=== PATIENT | female | born 1970 | race Two or more races ===

== ENCOUNTER 2017-10-09 05:10 | Emergency (ER) | payer MEDICAID ==
[~2017-10-09] VITALS: Ht 162.6 cm; Wt 102.1 kg
[~2017-10-09 05:10] MED LIST: ACID REDUCER10 MG PO; AMOXICILLIN 50500 MG PO; AMOXICILLIN/CLA1 TA6 PO; ASPIRIN 81MG TA81 MG PO; AURALGAN O10 ML/BOTT OT; BACTRIM DS 8001 TA1 PO; BACTRIM DS 8001 TAB PO; CIPRO 250MG TA250 MG PO; CIPRO 500MG TA500 MG PO; IBUPROFEN 600M600 MG PO; KEFLEX 500MG.500 MG PO; LORTAB 500 MG-71 TAB PO; MACRODANTIN100 MG PO; MIRALAX17 GM/PACK PO; MOBIC7.5 MG PO; MOTRIN 400MG.400 MG PO; NOMEDS *; NORCO 325 MG-51 TAB PO; OMEPRAZOLE20 MG PO; PEPCID 20MG TAB20 MG PO; PHENERGAN 25MG.25 M1 PO; PREDNISONE 20MG20 MG PO; PRILOSEC20 M1 PO; TORADOL10 MG PO; ULTRAM50 MG PO; ZANTAC 7575 MG PO; ZOFRAN ODT4 MG PO
[2017-10-09] MEDS ORDERED: LEVOTHYROXINE0.05 MG NG (05:22)
[2017-10-09] MEDS ORDERED: ASPIRIN 325MG325 MG PO (05:22)
--- OUTSIDE RECORDS SUMMARY | 2017-10-09 05:25 | External Medical Summary Rpt | CCD ---
Author Author , MARGUERITE EVERETT Address Unknown Phone Care Team Providers Care Reconcilement Clerk Name Role Phone [facility] Unavailable Unavailable [facility] Un[facility] Un[facility], [facility] Unavailable Unavailable HOSPITAL P, [facility] P [facility], Unavailable Unavailable [facility] CEZ[facility] LEYVA, Unavailable Unavailable CEZAR LEYVA [facility] Unavailable Unavailable [place], [facility] Unavailable Unavailable [facility], Unavailable Unavailable [facility] Un[facility], Unavailable Unavailable PLL, [facility], [facility] Unavailable [facility]available EMERGENCY PHYS, [facility] Purpose Continuity of Care Document - 07-05-2014 through 2016 Problems Code Diagnosis DOS Provider Status I119 HYPERTENSIV 07-06-2017 [facility] DISEASE [facility] WITHOUT HEART FAILURE K449 DIAPHRAGMAT 07-06-2017 [place] [facility] W/O IMAGING ASS OBSTRUCTION OR GANGRENE R0602 SHORTNESS 07-06-2017 [facility] BREATH [facility] INC R079 CHEST PAIN 07-06-2017 [facility] INC R109 UNSPECIFIED 07-06-2017 [facility]OM[facility]AL [facility] PAIN INC R1310 DYSPHAGIA 07-06-2017 [facility] Q13435 MIGRAINE 06-22-2017 [facility] UNS NOT PHYSICIANS INTRACT W/O GROUP STATUS MIGRAINOSUS H449 UNSPECIFIED 06-22-2017 [facility] DISORDER [facility] OF GLOBE INC R002 PALPITATION 06-22-2017 [facility] S PHYSICIANS GROUP 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 PERSONAL HX 06-22-2017 [facility] TIA & PHYSICIANS CEREB GROUP INFARCT NO RESID DEFICIT E039 HYPOTHYROID 06-08-2017 [facility] ISM PHYSICIANS UNSPECIFIED GROUP 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 [facility] ISCHEMIC INC ATTACK UNSPECIFIED G8929 OTHER 10-17-2016 [facility]IC [facility], PAIN PLLC R1031 RIGHT LOWER 10-14-2016 [facility] QUADRANT PHYSICIANS PAIN GROUP R319 HEMATURIA 10-14-2016 [place] [facility] E663 OVERWEIGHT 09-28-2016 [facility] K529 NONINFECTIV 09-28-2016 [facility] E PHYSICIANS GASTROENTER GROUP ITIS & COLITIS UNS I10 ESSENTIAL 09-25-2016 [facility] HYPERTENSIO INC N K4020 BILAT 09-25-2016 [facility] INGUINAL [facility], HERNIA W/O PLLC OBST/GANGRE N NOT RECUR K6289 OTHER 09-25-2016 [facility] SPECIFIED PHYSICIANS, DISEASES OF [facility] ANUS AND RECTUM R1032 LEFT LOWER 09-25-2016 [facility] PAIN INC L299 PRURITUS 09-16-2016 [facility] UNSPECIFIED PHYSICIANS GROUP L309 DERMATITIS 09-16-2016 [facility] UNSPECIFIED PHYSICIANS GROUP R030 ELEVATED 09-16-2016 [facility] BLOOD-PRESS PHYSICIANS URE READING GROUP WITHOUT DX HTN Q84QLEE BIT/STUNG 09-16-2016 [facility] NONVENOM PHYSICIANS INSECT OTH GROUP ARTHROPOD INIT ENC N390 URINARY 07-19-2016 [facility] INFECTION INC SITE NOT SPECIFIED B9620 UNS E COLI 07-18-2016 [facility] CAUSE DZ INC CLASS ELSEWHERE J029 ACUTE 07-15-2016 [facility] PHARYNGITIS PHYSICIANS GROUP UNSPECIFIED Z1231 ENCOUNTER 07-15-2016 [facility] SCREENING PHYSICIANS MAMMO MALIG GROUP NEOPLASM BREAST K429 UMBILICAL 07-10-2016 [place] [facility] WITHOUT IMAGING ASS OBSTRUCTION OR GANGRENE K5900 CONSTIPATIO 07-10-2016 [place] N [facility] UNSPECIFIED IMAGING ASS D649 ANEMIA 07-09-2016 [facility] UNSPECIFIED [facility]ICIANS, PLLC Z720 TOBACCO USE 07-09-2016 [facility] K3580 UNSPECIFIED 10-28-2015 [facility] APPENDICITI S K36 OTHER 10-28-2015 [facility] APPENDICITI PHYSICIANS S GROUP N9489 OTH COND 10-28-2015 [facility] ASSOC W/FE PHYSICIANS GEN ORGN & GROUP MENSTRUAL CYCL R102 PELVIC AND 10-28-2015 [facility] PER[facility] ANEST[facility] OF PAIN THE BLUE N831 CORPUS 10-24-2015 [facility] P T00656 ENCOUNTER 10-24-2015 [facility] FOR OTHER [facility] P AL EXAMINATION H6501 ACUTE 10-19-2015 [facility] SEROUS [facility], OTITIS PLLC MEDIA RIGHT EAR H6690 OTITIS 10-10-2015 [facility] MEDIA PHYSICIANS UNSPECIFIED GROUP UNSPECIFIED EAR Z1239 ENCOUNTER 10-10-2015 [facility] OTHER PHYSICIANS SCREENING GROUP MALIG NEOPLASM BREAST K644 RESIDUAL 10-07-2015 [facility] HEMORRHOIDA PHYSICIANS L SKIN TAGS GROUP A498 OTHER 09-23-2015 [facility] BACTERIAL PHYSICIANS INFECTIONS GROUP OF UNSPECIFIED SITE K625 HEMORRHAGE 09-23-2015 [facility] OF ANUS AND PHYSICIANS RECTUM GROUP N8320 UNSPECIFIED 09-23-2015 [facility] OVARIAN PHYSICIANS CYSTS GROUP N3000 ACUTE 09-19-2015 [facility] CYSTITIS [facility], WITHOUT PLLC HEMATURIA R1011 RIGHT UPPER 09-19-2015 [facility] QU[facility]ANT [facility], PAIN PLLC Z0100 ENCOUNTER 09-19-2015 [facility] EXAM EYES & GRE VISION W/O ABNORMAL FIND R110 NAUSEA 09-17-2015 [facility] R6881 EARLY 09-17-2015 [facility] SATIETY PHYSICIANS GROUP 92454 ACUTE 08-03-2015 [facility] GASTRITIS LEWES WITHOUT CAMPUS MENTION OF HEMORRHAGE 2859 UNSPECIFIED 07-29-[address] [facility] ANEMIA [facility] 7881 DYSURIA 07-29-2015 [facility] 5990 URINARY 07-15-[address] [facility] TRACT HEALTH INFECTION PARTNERS SITE NOT [facility] SPECIFIED V1251 PERSONAL 07-15-[address] [facility] HISTORY, HEALTH VENOUS PARTNERS THROMBOSIS [facility] AND EMBOLISM 95373 OTHER 07-14-[address] [facility] CONSTIPATIO HEALTH N [facility] 01319 ABDOMINAL 07-14-2015 [facility] PAIN OTHER HEALTH SPECIFIED PARTNERS SITE [facility] 4019 UNSPECIFIED 07-04-2015 [facility] HYPERTENSIO INC N 4139 OTHER AND 07-01-2015 [facility] ANGINA INC PECTORIS 29848 CHEST PAIN 06-18-[address] [facility] UNSPECIFIED HEALTH [facility] 58363 PAIN IN 06-17-[address] [facility] JOINT, HEALTH SHOULDER [facility] 7820 DISTURBANCE 06-17-[address] [facility] OF SKIN HEALTH SENSATION [facility] 7244 THORACIC/MATT 05-04-2015 [facility] NEURITIS/RA PARTNERS DICULITIS [facility] UNSPEC 36216 UNSPECIFIED 10-18-2014 [facility] ESOPHAGITIS GROUP 20893 REFLUX 10-11-2014 [facility] 50377 OTHER 10-11-2014 [facility] ESOPHAG[facility] 7503 CONGEN 10-11-2014 [facility]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 FIST GROUP ESOPH ATRESIA&JENNIFER NOSIS 57847 DYSPHAGIA 10-11-2014 [facility] UNSPECIFIED PHYSICIANS GROUP 4510 PHLEBITIS&T 10-06-2014 [facility] HROMBOPHLEB [facility] P VESSELS LOWER EXTREM V148 PERSONAL 10-06-2014 [facility] P SPEC MEDICINAL AGTS V1582 PERS HX 10-06-2014 [facility] TOBACCO USE [facility] P HAZARDS HEALTH 4536 VENOUS EMBO 10-04-2014 [facility] VES LOWR EXTREM 7295 PAIN IN 10-04-2014 [facility] [facility] OF [facility]ING [facility] [place] 98832 SWELLING OF 10-04-2014 [facility] 42566 ESOPHAGEAL 09-27-2014 [facility] REFLUX PHYSICIANS GROUP 7871 HEARTBURN 09-27-2014 [facility] 4739 UNSPECIFIED 09-17-2014 [facility] SINUSITIS PHYSICIANS GROUP 5533 DIAPHRAGMAT 08-21-2014 [facility] CESAR W/O HEALTH MENTION PARTNERS OBSTRUCTION [facility] /GANGREN 4660 ACUTE 08-11-2014 [facility] BRONCHITIS [facility] 5110 PLEURISY 08-09-2014 [facility] WITHOUT [facility] MENTION [facility] EFFUS/[place] [address] ABDOMINAL 07-05-2014 [facility] RIGHT N EMERGENCY UPPER PHYS QUADRANT D64.9 [facility], UNSPECIFIED I82.890 ACUTE EMBOLISM AND THROMBOSIS OF OTHER SPECIFIED VEINS J02.9 ACUTE PHARYNGITIS , UNSPECIFIED K40.20 BI INGUINAL HERNIA, W/O OBST OR GANGRENE, NOT SPCF RECUR K62.5 HEMORRHAGE OF ANUS AND RECTUM N39.0 URINARY TRACT INFECTION, SITE NOT SPECIFIED R10.31 RIGHT LOWER QUADRANT PAIN R10.9 UNSPECIFIED ABDOMINAL PAIN Medications Na ND Rx Da Fi Fi Am Da Di Ph RX Ph St me C No te ll ll ou ys ag ar # ys at rm s nt no ma ic us Or Da si cy ia de te s n re d IB 68 12 01 12 4 00 WA Ac UP 64 -1 -1 .0 00 L- ti RO 50 0- 3- 00 07 MA ve FE 53 20 20 45 RT N 05 16 17 76 60 9 89 PH 0 AR MG MA CY TA BL #5 ET 91 Results Labs Lab Lab Date Result Refere Interp Status Commen Order Detail nces retati t Range on Serum or plasma 25-hydroxyvitamin D neville (10-04-2017 14:00) Serum 11-27-2 = 25.0 30.0-10 complet or 017 ng/mL 0.0 ed plasma 14:00 25-hydr oxyvita min D [place] Comment: Vitamin D deficiency has been defined by the [place] of Comment: Medicine and an Endocrine Society practice guideline as a Comment: level of serum 25-OH vitamin D less than 20 ng/mL (1,2). Comment: The Endocrine Society went on to further define vitamin D Comment: insufficiency as a level between 21 and 29 ng/mL (2). Comment: 1. IOM ([place] of Medicine). 2010. Dietary reference Comment: intakes for calcium and D. Venegas [place]: The Comment: [employer]. Comment: 2. Issac MF, Sonia NC, Ann GRAY, et al. Comment: Evaluation, treatment, and prevention of vitamin D Comment: deficiency: an Endocrine Society clinical practice Comment: guideline. JCEM. 2010; 96(7):1911-30. Comment: Performed at: [facility] Comment: [id number], [place], [place] [id number] Comment: Supervisor [employer]: Porter Ware PhD, Phone: [phone] Serum or plasma thyroid stimulating horm (10-04-2017 14:00) Serum --2 = 4.72 0.358-3 complet or 017 uIU/ml .740 ed plasma 14:00 thyroid stimula ting horm Serum or plasma free thyroxine (T4) ne[place] (10-04-2017 14:00) Serum 11--2 = 0.87 0.76-1. complet or 017 ng/dL 46 ed plasma 14:00 free thyroxi ne (T4) [place] Comprehensive metabolic panel (10-04-2017 14:00) Serum 11--2 = 0.2 0.2-1.0 complet or 017 mg/dL ed plasma 14:00 total bilirub in measure m Serum 10-04-2 = 99 46-116 complet or 017 U/L ed plasma 14:00 alkalin e phospha tase marty Protein 2 = 7.3 6.4-8.2 complet total 017 gm/dL ed ser/denise 14:00 s ALT 2 = 20 12-78 complet (SGPT) 017 U/L ed ser/denise 14:00 s Serum 2 = 20 15-37 complet or 017 U/L ed plasma 14:00 asparta te aminotr ansfera Serum 2 = 142 136-145 complet sodium 017 mmoL/L ed measure 14:00 ment Serum 2 = 4.0 3.5-5.1 complet potassi 017 mmoL/L ed um 14:00 measure ment Serum 2 = 74 74-106 complet or 017 mg/dL ed plasma 14:00 glucose measure ment (mas Serum 2 = 3.5 1.3-3.2 complet globuli 017 gm/dL ed n 14:00 measure ment (mass/v olume) Estimat = 53 59- complet ed 017 ML/MIN ed glomeru 14:00 lar filtrat ion rate (GF Comment: REFERENCE RANGE: >60 ML/MIN/1.73 SQUARE METERS Comment: If this patient is -Cameroonian, then multiply the Comment: result by 1.210. Serum 2 = 1.1 0.55-1. complet or 017 mg/dL 02 ed plasma 14:00 creatin ine measure ment ( Carbon 2 = 27 21.0-32 complet dioxide 017 mmoL/L .0 ed 14:00 measure ment Serum 2 = 107 98-107 complet or 017 mmoL/L ed plasma 14:00 chlorid e measure ment (mo Serum 10-04-2 = 8.4 8.5-10. complet or 017 mg/dL 1 ed plasma 14:00 calcium measure ment (mas Serum 10-04-2 = 16 7-18 complet or 017 mg/dL ed plasma 14:00 urea nitroge n measure men Serum 10-04-2 = 3.8 3.4-5.0 complet or 017 gm/dL ed plasma 14:00 albumin measure ment (mas Serum 10-04-2 = 1.1 1.1-1.8 complet or 017 ed plasma 14:00 albumin /globul in mass ra Hemoglobin A1c measurement (10-04-2017 14:00) Hemoglo 11-27-2 5.5 % 0.0-7.0 complet bin A1c 017 ed 14:00 Comment: < 6% NON-DIABETIC LEVEL Comment: < 7% CONTROLLED DIABETIC LEVEL Comment: > 8% POORLY CONTROLLED DIABETIC LEVEL CBC w auto diff (10-04-2017 14:00) Blood = 5.4 4.8-10. complet leukocy 017 K/MM3 8 ed elizabeth 14:00 count (number /volume ) Automat = 16.6 11.5-17 complet ed 017 % .5 ed erythro 14:00 cyte distrib ution width Red = 4.06 4.2-5.4 complet blood 017 M/mm3 ed cell 14:00 count Blood = 214 142-424 complet platele 017 K/mm3 ed t count 14:00 Automat = 9.5 7.4-10. complet ed 017 fl 4 ed blood 14:00 platele t mean volume marty Terrell % = 6.3 % 1.7-9.3 complet 017 ed 14:00 Absolut = 0.3 0.1-1.0 complet e 017 K/mm3 ed monocyt 14:00 e count Automat = 80.1 82.2-97 complet ed 017 fl .8 ed erythro 14:00 cyte mean corpusc ular v Automat = 29.1 31.8-35 complet ed 017 g/dl .4 ed erythro 14:00 cyte mean corpusc ular h Mean = 23.3 27-31.2 complet corpusc 017 pg ed ular 14:00 hemoglo bin (MCH) determ Lymphoc = 32.0 10-50.0 complet yte 017 % ed count, 14:00 blood, automat ed Absolut = 1.7 0.7-4.5 complet e 017 K/mm3 ed lymphoc 14:00 yte count Blood = 9.6 12.2-16 complet hemoglo 017 g/dL .2 ed bin 14:00 measure ment (mass/v olum Blood = 32.5 37.0-47 complet hematoc 017 % .0 ed rit 14:00 (volume fractio n) Granulo = 58.8 37.0-80 complet cyte 017 % .0 ed percent 14:00 age Blood = 3.2 1.8-7.8 complet granulo 017 K/mm3 ed cytes 14:00 automat ed count (numb Automat = 2.4 % 0.1-12. complet ed 017 0 ed blood 14:00 eosinop hils/10 0 leukocy t Automat = 0.0 0-0.2 complet ed 017 K/MM3 ed blood 14:00 basophi l count (count/ vo Automat = 0.1 0.0-0.4 complet ed 017 K/mm3 ed blood 14:00 eosinop hil count Baso % = 0.5 % 0.1-2.0 complet 017 ed 14:00 Hemoglobin A1c in Blood (10-04-2017 14:00) Hemoglo 5.5 % 0.0% Normal complet bin A1c 017 - ed in 14:00 7.0% Blood Encounters Encounter Start End Date Code Location Performer Type Date [facility] - 7 7 [facility] - 7 7 [facility] - 7 7 [facility] - 6 6 [facility] - 6 6 [facility] - 6 6 [facility] - 6 6 [facility] - 6 6 [facility] - 6 6 [facility] - 6 [facility] - 5 5 [facility] 5 5 [facility] - 5 5 [facility] 5 [facility] 5 5 [facility] - 5 5 [facility] 5 5 [facility] - 5 5 [facility] - 5 5 [facility] 4 4 [facility] - 4 4 [facility] 4 4 [facility] - 4 4 [facility] 4 [facility] - 4 4 [facility] - 4 4 [facility]
--- OUTSIDE RECORDS SUMMARY | 2017-10-09 05:25 | External Medical Summary Rpt | CCD ---
Author Author , MARGUERITE EVERETT Address Unknown Phone Care Team Providers Care Hardware Design Engineer Name Role Phone [facility] OF Unavailable Unavailable [facility] [place] Un[facility] Un[facility] INC, [facility] Unavailable Unavailable HOSPITAL P, [facility] HOSPITAL P [facility], Unavailable Unavailable [facility] Unavailable Unavailable [facility], [facility] CEZAR LEYVA, Unavailable Unavailable CEZAR LEYVA [facility] Unavailable Unavailable [place] Unavailable Unavailable [facility], Unavailable Unavailable [facility] Unavailable [facility]available [facility], Unavailable Unavailable PLL, [facility], [facility] Unavailable Unavailable EMERGENCY PHYS, [facility] Purpose Continuity of Care Document - 07-05-2014 through 2016 Problems Code Diagnosis DOS Provider Status I119 HYPERTENSIV 07-06-2017 [facility] DISEASE INC WITHOUT HEART FAILURE K449 DIAPHRAGMAT 07-06-2017 [place] [facility]IA [facility]ICAL W/O IMAGING ASS OBSTRUCTION OR GANGRENE R0602 SHORTNESS 07-06-2017 [facility] OF BREATH [facility] INC R079 CHEST PAIN 07-06-2017 [facility] UNSPECIFIED [facility] INC R109 UNSPECIFIED 07-06-2017 [facility] ABDOMINAL [facility] PAIN INC R1310 DYSPHAGIA 07-06-2017 [place] UNSPECIFIED [facility]ICAL IMAGING ASS [id number] MIGRAINE 06-22-2017 [facility] UNS NOT PHYSICIANS INTRACT W/O GROUP STATUS MIGRAINOSUS H449 UNSPECIFIED 06-22-2017 [facility] DISORDER [facility] OF GLOBE INC R002 PALPITATION 06-22-2017 [facility] S PHYSICIANS GROUP [id number] PERSONAL HX 06-22-2017 [facility] TIA & PHYSICIANS CEREB GROUP INFARCT NO RESID DEFICIT E039 HYPOTHYROID 06-08-2017 [facility] ISM PHYSICIANS UNSPECIFIED GROUP 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 [facility] ISCHEMIC INC ATTACK UNSPECIFIED G8929 OTHER 10-17-2016 [facility] CHRONIC PHYSICIANS, PAIN PLLC R1031 RIGHT LOWER 10-14-2016 [facility] QUADRANT PHYSICIANS PAIN GROUP R319 HEMATURIA 10-14-2016 [place] UNSPECIFIED [facility]ICAL IMAGING ASS E663 OVERWEIGHT 09-28-2016 [facility] PHYSIC[facility]ANS GROUP K529 NONINFECTIV 09-28-2016 [facility] E PHYSICIANS GASTROENTER GROUP ITIS & COLITIS UNS I10 ESSENTIAL 09-25-2016 [facility] HYPERTENSIO INC N K4020 BILAT 09-25-2016 [facility] INGUINAL PHYSICIANS, HERNIA W/O PLLC OBST/GANGRE N NOT RECUR K6289 OTHER 09-25-2016 [facility] SPECIFIED PHYSICIANS, DISEASES OF [facility] ANUS AND RECTUM R1032 LEFT LOWER 09-25-2016 [place] [facility] PAIN INC L299 PRURITUS 09-16-2016 [facility] UNSPECIFIED PHYSICIANS GROUP L309 DERMATITIS 09-16-2016 [facility] UNSPECIFIED PHYSICIANS GROUP R030 ELEVATED 09-16-2016 [facility] BLOOD-PRESS PHYSICIANS URE READING GROUP WITHOUT DX HTN N53MRKD BIT/STUNG 09-16-2016 [facility] NONVENOM PHYSICIANS INSECT OTH GROUP ARTHROPOD INIT ENC N390 URINARY 07-19-2016 [place] [facility] INFECTION INC SITE NOT SPECIFIED B9620 UNS E COLI 07-18-2016 [place] [facility] CAUSE DZ INC CLASS ELSEWHERE J029 ACUTE 07-15-2016 [facility] PHARYNGITIS PHYSICIANS GROUP UNSPECIFIED Z1231 ENCOUNTER 07-15-2016 [facility] SCREENING PHYSICIANS MAMMO MALIG GROUP NEOPLASM BREAST K429 UMBILICAL 07-10-2016 [place] [facility]IA MEDICAL WITHOUT IMAGING ASS OBSTRUCTION OR GANGRENE K5900 CONSTIPATIO 07-10-2016 [place] N MEDICAL UNSPECIFIED IMAGING ASS D649 ANEMIA 07-09-2016 [facility] UNSPECIFIED PHYSICIANS, PLLC Z720 TOBACCO USE 07-09-2016 [facility] INC K3580 UNSPECIFIED 10-28-2015 [facility] APPENDICITI S K36 OTHER 10-28-2015 [facility] APPENDICITI PHYSICIANS S GROUP N9489 OTH COND 10-28-2015 [facility] ASSOC W/FE PHYSICIANS GEN ORGN & GROUP MENSTRUAL CYCL R102 PELVIC AND 10-28-2015 [facility] PERINEAL ANESTH OF PAIN THE BLUE N831 CORPUS 10-24-2015 [facility] P [id number] ENCOUNTER 10-24-2015 [facility] FOR OTHER [facility] P AL EXAMINATION H6501 ACUTE 10-19-2015 [facility] SEROUS PHYSICIANS, OTITIS PLLC MEDIA RIGHT EAR H6690 OTITIS 10-10-2015 [facility] MEDIA PHYSICIANS UNSPECIFIED GROUP UNSPECIFIED EAR Z1239 ENCOUNTER 10-10-2015 [facility] OTHER PHYSICIANS SCREENING GROUP MALIG NEOPLASM BREAST K644 RESIDUAL 10-07-2015 [facility] HEMORRHOIDA PHYSICIANS L SKIN TAGS GROUP A498 OTHER 09-23-2015 [facility] BACTERIAL PHYSICIANS INFECTIONS GROUP OF UNSPECIFIED SITE K625 HEMORRHAGE 09-23-2015 [facility] OF ANUS AND PHYSICIANS RECTUM GROUP N8320 UNSPECIFIED 09-23-2015 [facility] OVARIAN PHYSICIANS CYSTS GROUP N3000 ACUTE 09-19-2015 [facility] CYSTITIS PHYSICIANS, WITHOUT PLLC HEMATURIA R1011 RIGHT UPPER 09-19-2015 [facility] QUADRANT PHYSICIANS, PAIN PLLC Z0100 ENCOUNTER 09-19-2015 [facility] EXAM EYES & GRE VISION W/O ABNORMAL FIND R110 NAUSEA 09-17-2015 [facility] PHYSICIANS GROUP R6881 EARLY 09-17-2015 [facility] SATIETY PHYSICIANS GROUP 19468 ACUTE 08-03-2015 [facility] GASTRITIS [place] WITHOUT CAMPUS MENTION OF HEMORRHAGE 2859 UNSPECIFIED 07-29-2015 [facility] ANEMIA [facility] PART[facility]ERS [facility] 7881 DYSURIA 07-29-2015 [facility] 5990 URINARY 07-15-2015 [facility] TRACT HEALTH INFECTION PARTNERS SITE NOT [facility] SPECIFIED V1251 PERSONAL 07-15-2015 [facility] HISTORY, HEALTH VENOUS PARTNERS THROMBOSIS [facility] AND EMBOLISM 01618 OTHER 07-14-2015 [facility] CONSTIPATIO HEALTH N PARTNERS [facility] 64706 ABDOMINAL 07-14-2015 [facility] PAIN OTHER HEALTH SPECIFIED PARTNERS SITE [facility] 4019 UNSPECIFIED 07-04-2015 [facility] ESSENTIAL [facility] HYPERTENSIO INC N 4139 OTHER AND 07-01-2015 [facility] UNSPECIFIED [facility] ANGINA INC [place] 96633 CHEST PAIN 06-18-2015 [facility] UNSPECIFIED HEALTH [facility] 43389 PAIN IN 06-17-2015 [facility] JOINT, HEALTH SHOULDER [facility] 7820 DISTURBANCE 06-17-2015 [facility] OF SKIN HEALTH SENSATION [facility] 7244 THORACIC/MATT 05-04-2015 [facility] NEURITIS/RA PARTNERS DICULITIS [facility] UNSPEC 13919 UNSPECIFIED 10-18-2014 [facility] PHYSICIANS ESOPHAGITIS GROUP 11815 REFLUX 10-11-2014 [facility] 17341 OTHER 10-11-2014 [facility] 7503 CONGEN 10-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 P VESSELS LOWER EXTREM V148 PERSONAL 10-06-2014 [facility] HISTORY [facility] P SPEC MEDICINAL AGTS V1582 PERS HX 10-06-2014 [facility] TOBACCO USE [facility] P HAZARDS HEALTH 4536 VENOUS EMBO 10-04-2014 [place] & THROMB [facility] P VES LOWR EXTREM 7295 PAIN IN 10-04-2014 [place] SOFT MEDICAL TISSUES OF IMAGING ASS LIM[place] 57220 SWELLING OF 10-04-2014 [place] LIMB MEDICAL IMAGING ASS 53399 ESOPHAGEAL 09-27-2014 [facility] REFLUX PHYSICIANS GROUP 7871 HEARTBURN 09-27-2014 [facility] PHYSICIANS GROUP 4739 UNSPECIFIED 09-17-2014 [facility] SINUSITIS PHYSICIANS GROUP 5533 DIAPHRAGMAT 08-21-2014 [facility] CESAR W/O HEALTH MENTION PARTNERS OBSTRUCTION [facility] /GANGREN 4660 ACUTE 08-11-2014 [facility] BRONCHITIS [facility] 5110 PLEURISY 08-09-2014 [facility] WITHOUT [facility] MENTION CAMPUS EFFUS/[place] [address] ABDOMINAL 07-05-2014 [facility] PA[facility] RIGHT N EMERGENCY [...] D deficiency has been defined by the [place] of Comment: Medicine and an Endocrine Society practice guideline as a Comment: level of serum 25-OH vitamin D less than 20 ng/mL (1,2). Comment: The Endocrine Society went on to further define vitamin D Comment: insufficiency as a level between 21 and 29 ng/mL (2). Comment: 1. IOM ([place] of Medicine). 2010. Dietary reference Comment: intakes for calcium and D. [place]: The Comment: [employer]. Comment: 2. Issac MF, Sonia NC, Ann GRAY, et al. Comment: Evaluation, treatment, and prevention of vitamin D Comment: deficiency: an Endocrine Society clinical practice Comment: guideline. JCEM. 2010; 96(7):1911-30. Comment: Performed at: [facility] Comment: [address], [place], [place] [id number] Comment: Nematologist: Porter Ware PhD, Phone: [phone] Serum or plasma thyroid stimulating horm (10-04-2017 [...] SQUARE METERS Comment: If this patient is -German, then multiply the Comment: result by 1.210. [...] blood 14:00 platele t mean volume marty [place] % = 6.3 % 1.7-9.3 complet 017 [...] End Date Code Location Performer Type Date [facility] - 7 7 [facility] U[facility] - 7 7 [facility] UTE - 7 7 [facility]TE - 6 6 [facility] UTE - 6 6 [facility] UTE - 6 6 [facility] UTE - 6 6 [facility] UTE - 6 6 [facility] UTE - 6 6 [facility] UTE - 6 6 [facility] - 5 5 [facility] - 5 5 [facility] - 5 5 [facility]PATIEN INC [facility] UTE - 5 5 [facility]PAT[facility]EN [facility] UTE [facility] 5 5 [facility] MHP - 5 5 [facility] - 5 5 [facility] - [facility] 5 [facility] - 5 5 [facility] UTE - 5 5 [facility] UTE [facility] 5 5 [facility] MERCY - 5 5 [facility] MER[facility] - 5 5 [facility] - 5 5 [facility] - 4 4 [facility] UTE - 4 4 [facility] UTE - 4 4 [facility] - 4 4 [facility] - 4 4 [facility] MHP - 4 4 [facility] UTE - 4 4 [facility]
--- OUTSIDE RECORDS SUMMARY | 2017-10-09 05:26 | External Medical Summary Rpt | CCD ---
Author Author , MARGUERITE EVERETT Address Unknown Phone [email or web address] Care Team Providers Care Mainspring Winder And Oiler Name Role Phone [facility] ANESTH OF Unavailable Unavailable [facility] [place] Un[facility] Un[facility] INC, [facility] Un[facility]available [facility] P, [facility], Unavailable Unavailable [facility] Unavailable Unavailable [facility], [facility] CEZAR LEYVA, Unavailable Unavailable CEZAR LEYVA [facility] Unavailable Unavailable CAMPUS, [facility] Unavailable Unavailable [facility], Unavailable Unavailable [facility] Unavailable [facility]available [facility], Unavailable Unavailable PLL, [facility], [facility] Unavailable Unavailable EMERGENCY PHYS, [facility] Purpose Continuity of Care Document - 07-05-2014 through 2016 Problems Code Diagnosis DOS Provider Status I119 HYPERTENSIV 07-06-2017 [facility] DISEASE INC WITHOUT HEART FAILURE K449 DIAPHRAGMAT 07-06-2017 [place]ERNIA MEDICAL W/O IMAGING ASS OBSTRUCTION OR GANGRENE R0602 SHORTNESS 07-06-2017 [facility] OF BREATH [facility] INC R079 CHEST PAIN 07-06-2017 [facility] UNSPECIFIED [facility] INC R109 UNSPECIFIED 07-06-2017 [facility] ABDOMINAL [facility] PAIN INC R1310 DYSPHAGIA 07-06-2017 [facility]NSPECIFIED [facility] IM[facility]ING ASS [id number] MIGRAINE 06-22-2017 [facility] UNS NOT PHYSICIANS INTRACT W/O GROUP STATUS MIGRAINOSUS H449 UNSPECIFIED 06-22-2017 [facility] DISORDER [facility] OF GLOBE INC R002 PALPITATION 06-22-2017 [facility] S PHYSICIANS GROUP Z8673 PERSONAL HX 06-22-2017 [facility] TIA & PHYSICIANS CEREB GROUP INFARCT NO RESID DEFICIT E039 HYPOTHYROID 06-08-2017 [facility] ISM PHYSICIANS UNSPECIFIED GROUP 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 [facility] ISCHEMIC INC ATTACK UNSPECIFIED G8929 OTHER 10-17-2016 [facility] CHRONIC PHYSICIANS, PAIN PLLC R1031 RIGHT LOWER 10-14-2016 [facility] QUADRANT PHYSICIANS PAIN GROUP R319 HEMATURIA 10-14-2016 [facility] UNSPECIFIED [facility] IM[facility]ING ASS E663 OVERWEIGHT 09-28-2016 [facility] PHYSICIANS GROUP K529 NONINFECTIV 09-28-2016 [facility] E PHYSICIANS GASTROENTER GROUP ITIS & COLITIS UNS I10 ESSENTIAL 09-25-2016 [facility] HYPERTENSIO INC N K4020 BILAT 09-25-2016 [facility] INGUINAL PHYSICIANS, HERNIA W/O PLLC OBST/GANGRE N NOT RECUR K6289 OTHER 09-25-2016 [facility] SPECIFIED PHYSICIANS, DISEASES OF [facility] ANUS AND RECTUM R1032 LEFT LOWER 09-25-2016 [facility] PAIN INC L299 PRURITUS 09-16-2016 [facility] UNSPECIFIED PHYSICIANS GROUP L309 DERMATITIS 09-16-2016 [facility] UNSPECIFIED PHYSICIANS GROUP R030 ELEVATED 09-16-2016 [facility] BLOOD-PRESS PHYSICIANS URE READING GROUP WITHOUT DX HTN T77SNMD BIT/STUNG 09-16-2016 [facility] NONVENOM PHYSICIANS INSECT OTH GROUP ARTHROPOD INIT ENC N390 URINARY 07-19-2016 [facility] TRACT [facility] INFECTION INC SITE NOT SPECIFIED B9620 UNS E COLI 07-18-2016 [facility]. [facility] CAUSE DZ INC CLASS ELSEWHERE J029 ACUTE 07-15-2016 [facility] PHARYNGITIS PHYSICIANS GROUP UNSPECIFIED Z1231 ENCOUNTER 07-15-2016 [facility] SCREENING PHYSICIANS MAMMO MALIG GROUP NEOPLASM BREAST K429 UMBILICAL 07-10-2016 [facility] MEDICAL WITHOUT IMAGING ASS OBSTRUCTION OR GANGRENE K5900 CONSTIPATIO 07-10-2016 [facility] N MEDICAL UNSPECIFIED IMAGING ASS D649 ANEMIA 07-09-2016 [facility] UNSPECIFIED PHYSICIANS, PLLC Z720 TOBACCO USE 07-09-2016 [facility] INC K3580 UNSPECIFIED 10-28-2015 [facility] APPENDICITI S K36 OTHER 10-28-2015 [facility] APPENDICITI PHYSICIANS S GROUP N9489 OTH COND 10-28-2015 [facility] ASSOC W/FE PHYSICIANS GEN ORGN & GROUP MENSTRUAL CYCL R102 PELVIC AND 10-28-2015 COMMUNITY PERINEAL ANESTH OF PAIN THE BLUE N831 CORPUS 10-24-2015 [facility] P K12071 ENCOUNTER 10-24-2015 [facility] FOR OTHER [facility] P AL EXAMINATION H6501 ACUTE 10-19-2015 [facility] SEROUS PHYSICIANS, OTITIS PLLC MEDIA RIGHT EAR H6690 OTITIS 10-10-2015 [facility] MEDIA PHYSICIANS UNSPECIFIED GROUP UNSPECIFIED EAR Z1239 ENCOUNTER 10-10-2015 [facility] OTHER PHYSICIANS SCREENING GROUP MALIG NEOPLASM BREAST K644 RESIDUAL 10-07-2015 [facility] HEMORRHOIDA PHYSICIANS L SKIN TAGS GROUP A498 OTHER 09-23-2015 [facility] BACTERIAL PHYSICIANS INFECTIONS GROUP OF UNSPECIFIED SITE K625 HEMORRHAGE 09-23-2015 [facility] OF ANUS AND PHYSICIANS RECTUM GROUP N8320 UNSPECIFIED 09-23-2015 [facility] OVARIAN PHYSICIANS CYSTS GROUP N3000 ACUTE 09-19-2015 [facility] CYSTITIS PHYSICIANS, WITHOUT PLLC HEMATURIA R1011 RIGHT UPPER 09-19-2015 [facility] QU[facility]ANT PHYSICIANS, PAIN PLLC Z0100 ENCOUNTER 09-19-2015 [facility] EXAM EYES & GRE VISION W/O ABNORMAL FIND R110 NAUSEA 09-17-2015 [facility] PHYSICIANS GROUP R6881 EARLY 09-17-2015 [facility] SATIETY PHYSICIANS GROUP 74299 ACUTE 08-03-2015 P GASTRITIS [place] WITHOUT CAMPUS MENTION OF HEMORRHAGE 2859 UNSPECIFIED 07-29-2015 [facility] 7881 DYSURIA 07-29-2015 [facility] HEALTH PARTNERS [facility] 5990 URINARY 07-15-2015 [facility] TRACT HEALTH INFECTION PARTNERS SITE NOT [facility] SPECIFIED V1251 PERSONAL 07-15-2015 [facility] HISTORY, HEALTH VENOUS PARTNERS THROMBOSIS [facility] AND EMBOLISM 27547 OTHER 07-14-2015 [facility] CONSTIPATIO HEALTH N PARTNERS [facility] 40129 ABDOMINAL 07-14-2015 [facility] PAIN OTHER HEALTH SPECIFIED PARTNERS SITE [facility] 4019 UNSPECIFIED 07-04-2015 [facility] ESSENTIAL [facility] HYPERTENSIO INC N 4139 OTHER AND 07-01-2015 [facility] UNSPECIFIED [facility] ANGINA INC [place] 28165 CHEST PAIN 06-18-2015 [facility] UNSPECIFIED HEALTH [facility] 23678 PAIN IN 06-17-2015 [facility] JOINT, HEALTH SHOULDER [facility] 7820 DISTURBANCE 06-17-2015 [facility] OF SKIN HEALTH SENSATION [facility] 7244 THORACIC/MATT 05-04-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&JENNIFER NOSIS 33552 DYSPHAGIA 10-11-2014 [facility] UNSPECIFIED PHYSICIANS GROUP 4510 PHLEBITIS&T 10-06-2014 [facility] HROMBOPHLEB [facility] P VESSELS LOWER EXTREM V148 PERSONAL 10-06-2014 [facility] HISTORY [facility] ALL[facility]GY [facility] P SPEC MEDICINAL AGTS V1582 PERS HX 10-06-2014 [facility] TOBACCO USE [facility] P HAZARDS HEALTH 4536 VENOUS EMBO 10-04-2014 [facility] & THROMB [facility] P VES LOWR EXTREM 7295 PAIN IN 10-04-2014 [facility] SOFT MEDICAL TISSUES OF IMAGING ASS [place] 07302 SWELLING OF 10-04-2014 [facility] 88720 ESOPHAGEAL 09-27-2014 [facility] REFLUX PHYSICIANS GROUP 7871 HEARTBURN 09-27-2014 [facility] PHYSICIANS GROUP 4739 UNSPECIFIED 09-17-2014 [facility] SINUSITIS PHYSICIANS GROUP 5533 DIAPHRAGMAT 08-21-2014 [facility] CES[facility] W/O HEALTH MENTION PARTNERS OBSTRUCTION [facility] /GANGREN 4660 ACUTE 08-11-2014 [facility] BRONCHITIS [facility] 5110 PLEURISY 08-09-2014 [facility] WITHOUT [place] MENTION CAMPUS EFFUS/[place] [address] ABDOMINAL 07-05-2014 [facility] RIGHT N EMERGENCY UPPER PHYS QUADRANT Medications Na ND Rx Da Fi Fi [...] MA CY TA BL #5 ET 91 Encounters Encounter Start End Date Code Location Performer Type Date [facility] - 7 7 [facility] 6 6 [facility] - 6 6 [facility] - 6 6 [facility] - 6 6 [facility] - 6 6 [facility] - 6 6 [facility] - 6 6 [facility] U[facility] - 5 5 [facility] UTE - 5 5 [facility] UTE - 5 5 [facility] UTE - 5 5 [facility] UTE - 5 5 [facility] MHP - 5 5 [facility] - [address] [facility] [address] [facility] - [address] [facility] 5 5 [facility] - 5 5 [facility] - 5 5 [facility] - 5 5 [facility]TE - 4 4 [facility] U[facility] 4 4 [facility] 4 4 [facility] - 4 4 [facility] - 4 4 [facility] - 4 4 [facility]
--- OUTSIDE RECORDS SUMMARY | 2017-10-09 05:26 | External Medical Summary Rpt | CCD ---
Demographics Preferred Language Guamanian Marital Status Unknown Evangelical Affiliation Unknown Race Unknown Ethnic Group Unknown Author Author , MARGUERITE EVERETT Address Unknown Phone Immunization Unable to retrieve immunization data due to connection failure with Immunization Registry. Please try again later.
--- OUTSIDE RECORDS SUMMARY | 2017-10-09 05:26 | External Medical Summary Rpt | CCD ---
Author Author , MARGUERITE EVERETT Address Unknown Phone [email or web address] Care Team Providers Care Tubing Oiler Name Role Phone [facility] Unavailable Unavailable [facility] Un[facility] Un[facility], [facility] Unavailable Unavailable HOSPITAL P, [facility], Unavailable Unavailable [facility] Un[facility] Un[facility] CEZAR LEYVA, Unavailable Unavailable CEZAR LEYVA [facility] Unavailable Unavailable CAMP[facility], [facility] Unavailable Unavailable [facility], Unavailable Unavailable [facility] Unavailable [facility], Unavailable Unavailable PLL, [facility], [facility] Unavailable Unavailable EMERGENCY PHYS, [facility] Purpose Continuity of Care Document - 07-05-2014 through 2016 Problems Code Diagnosis DOS Provider Status I119 HYPERTENSIV 07-06-2017 [facility] DISEASE INC WITHOUT HEART FAILURE K449 DIAPHRAGMAT 07-06-2017 [facility] W/O IMAGING ASS OBSTRUCTION OR GANGRENE R0602 SHORTNESS 07-06-2017 [facility] BREATH [facility] INC R079 CHEST PAIN 07-06-2017 [facility]PECIFIED [facility] INC R109 UNSPECIFIED 07-06-2017 [facility]BDOMINAL [facility] PAIN INC R1310 DYSPHAGIA 07-06-2017 [facility] U73219 MIGRAINE 06-22-2017 [facility] UNS NOT PHYSICIANS INTRACT W/O GROUP STATUS MIGRAINOSUS H449 UNSPECIFIED 06-22-2017 [facility] DISORDER [facility] OF GLOBE INC R002 PALPITATION 06-22-2017 [facility] S PHYSICIANS GROUP Z8673 PERSONAL HX 06-22-2017 [facility] TIA & PHYSICIANS CEREB GROUP INFARCT NO RESID DEFICIT E039 HYPOTHYROID 06-08-2017 [facility] ISM PHYSICIANS UNSPECIFIED GROUP 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 [facility] ISCHEMIC INC ATTACK UNSPECIFIED G8929 OTHER 10-17-2016 [facility] CHRONIC [facility], PAIN PLLC R1031 RIGHT LOWER 10-14-2016 [facility] QUADRANT PHYSICIANS PAIN GROUP R319 HEMATURIA 10-14-2016 [facility] E663 OVERWEIGHT 09-28-2016 [facility] K529 NONINFECTIV 09-28-2016 [facility] E PHYSICIANS GASTROENTER GROUP ITIS & COLITIS UNS I10 ESSENTIAL 09-25-2016 [facility]IMARY [facility] HYPERTENSIO INC N K4020 BILAT 09-25-2016 [facility] INGUINAL [facility], HERNIA W/O PLLC OBST/GANGRE N NOT RECUR K6289 OTHER 09-25-2016 [facility] SPECIFIED PHYSICIANS, DISEASES OF [facility] ANUS AND RECTUM R1032 LEFT LOWER 09-25-2016 [facility] PAIN INC L299 PRURITUS 09-16-2016 [facility] UNSPECIFIED PHYSICIANS GROUP L309 DERMATITIS 09-16-2016 [facility] UNSPECIFIED PHYSICIANS GROUP R030 ELEVATED 09-16-2016 [facility] BLOOD-PRESS PHYSICIANS URE READING GROUP WITHOUT DX HTN [id number] BIT/STUNG 09-16-2016 [facility] NONVENOM PHYSICIANS INSECT OTH GROUP ARTHROPOD INIT ENC N390 URINARY 07-19-2016 [facility] TRACT [facility] INFECTION INC SITE NOT SPECIFIED B9620 UNS E COLI 07-18-2016 [facility] E. COLI [facility] CAUSE DZ INC CLASS ELSEWHERE J029 ACUTE 07-15-2016 [facility] PHARYNGITIS PHYSICIANS GROUP UNSPECIFIED Z1231 ENCOUNTER 07-15-2016 [facility] SCREENING PHYSICIANS MAMMO MALIG GROUP NEOPLASM BREAST K429 UMBILICAL 07-10-2016 [facility] WITHOUT IMAGING ASS OBSTRUCTION OR GANGRENE K5900 CONSTIPATIO 07-10-2016 [facility] N [facility]ICAL UNSPECIFIED IMAGING ASS D649 ANEMIA 07-09-2016 [facility] UNSPECIFIED PHYSICIANS, PLLC Z720 TOBACCO USE 07-09-2016 [facility] K3580 UNSPECIFIED 10-28-2015 [facility] ACUTE [facility] APPENDICITI S K36 OTHER 10-28-2015 [facility] APPENDICITI PHYSICIANS S GROUP N9489 OTH COND 10-28-2015 [facility] ASSOC W/FE PHYSICIANS GEN ORGN & GROUP MENSTRUAL CYCL R102 PELVIC AND 10-28-2015 [facility] PERINEAL ANESTH OF PAIN THE BLUE N831 CORPUS 10-24-2015 [facility] LUTEUM [facility] P E50698 ENCOUNTER 10-24-2015 [facility] FOR OTHER [facility] P AL EXAMINATION H6501 ACUTE 10-19-2015 [facility] SEROUS [facility], OTITIS PLLC MEDIA RIGHT EAR H6690 OTITIS 10-10-2015 [facility] MEDIA PHYSICIANS UNSPECIFIED GROUP UNSPECIFIED EAR Z1239 ENCOUNTER 10-10-2015 [facility] OTHER PHYSICIANS SCREENING GROUP MALIG NEOPLASM BREAST K644 RESIDUAL 10-07-2015 [facility] HEMORRHOIDA PHYSICIANS L SKIN TAGS GROUP A498 OTHER 09-23-2015 [facility] BACTERIAL PHYSICIANS INFECTIONS GROUP OF UNSPECIFIED SITE K625 HEMORRHAGE 09-23-2015 [facility] OF ANUS AND PHYSICIANS RECTUM GROUP N8320 UNSPECIFIED 09-23-2015 [facility] OVARIAN PHYSICIANS CYSTS GROUP N3000 ACUTE 09-19-2015 [facility] CYSTITIS [facility]IANS, WITHOUT PLLC HEMATURIA R1011 RIGHT UPPER 09-19-2015 [facility] QUADRANT [facility], PAIN PLLC Z0100 ENCOUNTER 09-19-2015 [facility] EXAM EYES & GRE VISION W/O ABNORMAL FIND R110 NAUSEA 09-17-2015 [facility] R6881 EARLY 09-17-2015 [facility] SATIETY PHYSICIANS GROUP 36861 ACUTE 08-03-2015 P GASTRITIS [place] WITHOUT CAMPUS MENTION OF HEMORRHAGE 2859 UNSPECIFIED 07-29-2015 [facility] ANEMIA HEALTH PARTNERS [facility] 7881 DYSURIA 07-29-2015 [facility] HEALTH PARTNERS [facility] 5990 URINARY 07-15-2015 [facility] TRACT HEALTH INFECTION PARTNERS SITE NOT [facility] SPECIFIED V1251 PERSONAL 07-15-2015 [facility] HISTORY, HEALTH VENOUS PARTNERS THROMBOSIS [facility] AND EMBOLISM 38605 OTHER 07-14-2015 [facility] CONSTIPATIO [facility]ALTH N [facility] 78456 ABDOMINAL 07-14-2015 [facility] PAIN OTHER HEALTH SPECIFIED PARTNERS SITE [facility] 4019 UNSPECIFIED 07-04-2015 [facility] ESSENTIAL [facility] HYPERTENSIO INC N 4139 OTHER AND 07-01-2015 [facility]NSPECIFIED [facility] INC [place] 62945 CHEST PAIN 06-18-2015 [facility] UNSPECIFIED HEALTH [facility] 11135 PAIN IN 06-17-2015 [facility] JOINT, HEALTH [facility] 7820 DISTURBANCE 06-17-2015 [facility] OF SKIN HEALTH SENSATION [facility] 7244 THORACIC/MATT 05-04-2015 [facility] NEURITIS/RA PARTNERS DICULITIS [facility] UNSPEC 74137 UNSPECIFIED 10-18-2014 [facility] ESOPHAGITIS GROUP 06358 REFLUX 10-11-2014 [facility] 82507 OTHER 10-11-2014 [facility]OPH[facility] 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 NOSIS 65367 DYSPHAGIA 10-11-2014 [facility] UNSPECIFIED PHYSICIANS GROUP 4510 PHLEBITIS&T 10-06-2014 [facility] HROMBOPHLEB [facility] P VESSELS LOWER EXTREM V148 PERSONAL 10-06-2014 [facility] HISTORY [facility] SPE[facility] MEDICINAL AGTS V1582 PERS HX 10-06-2014 [facility] TOBACCO USE [facility] P HAZARDS HEALTH 4536 VENOUS EMBO 10-04-2014 [facility] & THROMB [facility] P VES LOWR EXTREM 7295 PAIN IN 10-04-2014 [facility] T[facility]SUES OF IMAGING [facility] 37384 SWELLING OF 10-04-2014 [facility] 63934 ESOPHAGEAL 09-27-2014 [facility] REFLUX PHYSICIANS GROUP 7871 HEARTBURN 09-27-2014 [facility] 4739 UNSPECIFIED 09-17-2014 [facility] SINUSITIS PHYSICIANS GROUP 5533 DIAPHRAGMAT 08-21-2014 [facility] CESAR W/O HEALTH MENTION PARTNERS OBSTRUCTION [facility] /GANGREN 4660 ACUTE 08-11-2014 [facility] BRONCHITIS [facility] 5110 PLEURISY 08-09-2014 [facility] WITHOUT [facility] [place]FF[place] [address] ABDOMINAL 07-05-2014 [facility] RIGHT N EMERGENCY [...] End Date Code Location Performer Type Date [facility] - 7 7 [facility] 6 6 [facility] - 6 6 [facility] - 6 6 [facility] 6 6 [facility] - 6 6 [facility] - 6 6 [facility] - 6 6 [facility] - 5 5 [facility] - 5 5 [facility] - 5 5 [facility] - 5 5 [facility] - 5 5 [facility] - 5 5 [facility] - 5 5 [facility] 5 [facility] - 5 5 [facility] - 5 5 [facility] - 5 5 [facility] - 5 5 [facility] - 5 5 [facility] - 4 4 [facility] - 4 4 [facility] - 4 4 [facility] - 4 4 [facility] - 4 4 [facility]
--- OUTSIDE RECORDS SUMMARY | 2017-10-09 05:26 | External Medical Summary Rpt | CCD ---
Demographics Preferred Language Ecuadorean Marital Status Unknown Mosque Affiliation Unknown Race Unknown Ethnic Group Unknown Author Author , MARGUERITE EVERETT Address Unknown Phone Immunization Unable to retrieve immunization data due to connection failure with Immunization Registry. Please try again later.
--- OUTSIDE RECORDS SUMMARY | 2017-10-09 05:27 | External Medical Summary Rpt ---
Author Author BELINDAJESUS Strange, MARGUERITE [employer] Address Unknown Phone Unavailable Results 25-Hydroxyvitamin D [Mass/volume] in Serum or Plasma Observa Value Referen Units Interpr Notes Date tion ce etation Range 25-Hydrox 30.0 - ng/mL Low Vitamin D Oct 04 yvitamin 100.0 2016 2:00 D deficienc PM [Mass/vol y has ume] in been Serum or defined Plasma by the [place] ofMedicin e and an Endocrine Society practice guideline as alevel of serum 25-OH vitamin D less than 20 ng/mL (1,2).The Endocrine Society went on to further define vitamin Dinsuffic iency as a level between 21 and 29 ng/mL (2).1. IOM (Institut e of Medicine) . 2010. Dietary reference intakes for calcium and D. [place]: TheNation al Academies Press.2. Issac MF, Sonia NC, Sandra Gaspar GRAY, et al.Evalua tion, treatment , and preventio n of vitamin Ddeficien cy: an Endocrine Society clinical practiceg uideline. JCEM. 2010; 96(7):191 1-30.Perf ormed at: [facility] [place], [place] [id number] Business Systems Administrator: Porter Ware PhD, Phone: [phone] Comprehensive metabolic 2000 panel in Serum or Plasma Observa Value Referen Units Interpr Notes Date tion ce etation Range Albumin/G 1.1 - 1.8 No Normal No Oct 04 lobulin informati informati 2016 2:00 [Mass on in on in PM ratio] in source source Serum or data data Plasma Albumin 3.4 - 5.0 gm/dL Normal No Oct 04 [Mass/vol informati 2017 2:00 ume] in on in PM Serum or source Plasma data Alkaline 46 - 116 U/L Normal No Oct 04 phosphata informati 2016 2:00 se on in PM [Enzymati source c data activity/ volume] in Serum or Plasma Bilirubin 0.2 - 1.0 mg/dL Normal No Oct 04 .total informati 2016 2:00 [Mass/vol on in PM ume] in source Serum or data Plasma Urea 7 - 18 mg/dL Normal Oct 04 nitrogen informati 2016 2:00 [Mass/vol on in PM ume] in source Serum or data Plasma Calcium 8.5 - mg/dL Low No Oct 04 [Mass/vol 10.1 informati 2016 2:00 ume] in on in PM Serum or source Plasma data Chloride 98 - 107 mmoL/L Normal No Oct 04 [Moles/vo informati 2016 2:00 lume] in on in PM Serum or source Plasma data Carbon 21.0 - mmoL/L Normal No Oct 04 dioxide, 32.0 informati 2016 2:00 total on in PM [Moles/vo source lume] in data Serum or Plasma Creatinin 0.55 - mg/dL High No Oct 04 e 1.02 informati 2016 2:00 [Mass/vol on in PM ume] in source Serum or data Plasma Estimated 59- ML/MIN Low REFERENCE Oct 04 RANGE: 2016 2:00 glomerula >60 PM r ML/MIN/1. filtratio 73 SQUARE n rate METERSIf (GF this patient is -A merican, then multiply theresult by 1.210. Globulin 1.3 - 3.2 gm/dL High No Oct 04 [Mass/vol informati 2016 2:00 ume] in on in PM Serum source data Glucose 74 - 106 mg/dL Normal Oct 04 [Mass/vol informati 2016 2:00 ume] in on in PM Serum or source Plasma data Potassium 3.5 - 5.1 mmoL/L Normal Oct 04 informati 2016 2:00 [Moles/vo on in PM lume] in source Serum or data Plasma Sodium 136 - 145 mmoL/L Normal Oct 04 [Moles/vo informati 2016 2:00 lume] in on in PM Serum or source Plasma data Aspartate 15 - 37 U/L Normal Oct 04 informati 2016 2:00 aminotran on in PM sferase source [Enzymati data c activity/ volume] in Serum or Plasma Alanine 12 - 78 U/L Normal Oct 04 aminotran informati 2016 2:00 sferase on in PM [Enzymati source c data activity/ volume] in Serum or Plasma Protein 6.4 - 8.2 gm/dL Normal No Oct 04 [Mass/vol inform2016 2:00 ume] in on in PM Serum or source Plasma data Thyroxine (T4) free [Mass/volume] in Serum or Plasma Observa Value Referen Units Interpr Notes Date tion ce etation Range Thyroxine 0.76 - ng/dL Normal No Oct 04 (T4) 1.46 inform2016 2:00 free on in PM [Mass/vol source ume] in data Serum or Plasma Thyrotropin [Units/volume] in Serum or Plasma Observa Value Referen Units Interpr Notes Date tion ce etation Range Thyrotrop 0.358 - uIU/ml High No Oct 04 in 3.740 inform2016 2:00 [Units/vo on in PM lume] in source Serum or data Plasma Hemoglobin A1c in Blood Observa Value Referen Units Interpr Notes Date tion ce etation Range Hemoglo 5.5 0.0 - % Normal < 6% Oct 04 bin A1c 7.0 NON-RAMÍREZ 2017 in BETIC 2:00 PM Blood LEVEL< 7% CONTROL LED DIABETI C LEVEL> 8% POORLY CONTROL LED DIABETI C LEVEL CBC W Auto Differential panel in Blood Observa Value Referen Units Interpr Notes Date tion ce etation Range Basophils 0 - 0.2 K/MM3 Normal No Oct 042016 2:00 [#/volume on in PM ] in source Blood by data Automated count Basophils 0.1 - 2.0 % Normal No Oct 04 inform2016 2:00 leukocyte on in PM s in source Blood by data Automated count Eosinophi 0.0 - 0.4 K/mm3 Normal No Oct 04 ls informati 2016 2:00 [#/volume on in PM ] in source Blood by data Automated count Eosinophi 0.1 - % Normal No Oct 04 ls/100 12.0 informati 2016 2:00 leukocyte on in PM s in source Blood by data Automated count Granulocy 1.8 - 7.8 K/mm3 Normal No Oct 04 elizabeth inform2016 2:00 [#/volume on in PM ] in source Blood by data Automated count Granulocy 37.0 - % Normal No Oct 04 elizabeth/100 80.0 informati 2016 2:00 leukocyte on in PM s in source Blood by data Automated count Hematocri 37.0 - % Low Oct 04 t [Volume 47.0 informati 2016 2:00 on in PM Fraction] source of Blood data Hemoglobi 12.2 - g/dL Low Oct 04 n 16.2 informati 2016 2:00 [Mass/vol on in PM ume] in source Blood data Lymphocyt 0.7 - 4.5 K/mm3 Normal Oct 04 es inform2016 2:00 [#/volume on in PM ] in source Unspecifi data ed specimen by Automated count Lymphocyt 10 - 50.0 % Normal Oct 04 es informati 2016 2:00 [#/volume on in PM ] in source Unspecifi data ed specimen by Automated count Erythrocy 27 - 31.2 pg Low Oct 04 te mean informati 2016 2:00 corpuscul on in PM ar source hemoglobi data n [Entitic mass] Erythrocy 31.8 - g/dl Low Oct 04 te mean 35.4 informati 2016 2:00 corpuscul on in PM ar source hemoglobi data n concentra tion [Mass/vol ume] by Automated count Erythrocy 82.2 - fl Low Oct 04 te mean 97.8 informati 2016 2:00 corpuscul on in PM ar volume source [Entitic data volume] by Automated count Monocytes 0.1 - 1.0 K/mm3 Normal No Oct 042016 2:00 [#/volume on in PM ] in source Blood by data Automated count Monocytes 1.7 - 9.3 % Normal No Oct 04 /100 informati 2016 2:00 leukocyte on in PM s in source Blood by data Automated count Platelet 7.4 - fl Normal Oct 04 mean 10.4 informati 2016 2:00 volume on in PM [Entitic source volume] data in Blood by Automated count Platelets 142 - 424 K/mm3 Normal Oct 04 informati 2016 2:00 [#/volume on in PM ] in source Blood data Erythrocy 4.2 - 5.4 M/mm3 Low Oct 04 elizabeth informati 2016 2:00 [#/volume on in PM ] in source Amniotic data fluid Erythrocy 11.5 - % Normal Oct 04 te 17.5 informati 2016 2:00 distribut on in PM ion width source [Entitic data volume] by Automated count Leukocyte 4.8 - K/MM3 Normal No Sep 27 s 10.8 informati 2017 2:00 [#/volume on in PM ] in source Blood data
--- OUTSIDE RECORDS SUMMARY | 2017-10-09 05:27 | External Medical Summary Rpt ---
Author Author BELINDAJESUS Strange, MARG[employer] Organization [employer] Address Unknown Phone Unavailable Results 25-Hydroxyvitamin D [Mass/volume] in Serum or Plasma Observa Value Referen Units Interpr Notes Date tion ce etation Range 25-Hydrox 30.0 - ng/mL Low Vitamin D Oct 04 yvitamin 100.0 2016 2:00 D deficienc PM [Mass/vol y has ume] in been Serum or defined Plasma by the [place] ofMedicin e and an Endocrine Society practice [...] uideline. JCEM. 2010; 96(7):191 1-30.Perf ormed at: [facility] [place], [place] [id number] Health Insurance Assessor: Porter Ware PhD, Phone: [phone] Comprehensive metabolic 2000 panel in Serum [...]
--- NOTE | 2017-10-09 05:29 | Emergency Room Report ---
History of Present Illness Time Seen by 05Carson Presenting Problem in Triage Pt arrived:Walked Presenting Problem:PT STATES SHE HAS A PRESSURE-LIKE CHEST PAIN IN THE LEFT UPPER PART OF HER CHEST THAT RADIATES WITH A NUMBNESS DOWN HER LEFT ARM. SHE HAS FELT SLIGHTLY SIMILAR TO THIS ONCE BEFORE IN DECEMBER OF THIS YEAR AND WAS DIAGNOSED AT THAT TIME WITH A TIA. AT THAT TIME, HOWEVER, PT HAD TOTAL LEFT SIDE NUMBNESS. PT ALSO STATES SHE FEELS DIZZY AND NAUSEOUS. THIS STARTED ABOUT 2 HOURS AGO Onset of symptoms date/time:10/09/1712/25/329 or onset unknown for: Treatment Prior to Arrival: SHOE LASTER Provided by: Sepsis Risk Assessment: Temp: 97.8 B/P: 117/80 MAP: 92 Pulse: 65 Resp: 18 Recent fever? N Clinical Suspician of Infection? N Mental Status: 1 - Regular (Normal Baseline) Sepsis Risk:Low Sepsis Risk Have you (or family members/close friends) recently traveled outside the [place]? N If Yes, where/when: Have you had exposure to infectious disease within the past month? N TB? Other? Specify: Source patient, RN notes reviewed, family, old records Exam Limitations no limitations Comment pt with episode of chest pain which she awoke and has assoc tingling lt upper ext but no slurred speech or visual sx and has had similiar episode in [facility] in - chart reviewed from old office records- Cardiac Chest Pain Chest pain indicative of cardiac Yes Timing/Duration 1-3 hours, gone now Severity/Quality moderate, pressure Location central Chest Pain Radiation arm(s) Activities at Onset light activity Nitro Today/Relief no nitro taken today Aspirin Treatment Today 325 mg x 1, provided by ED Beta edil treatment today no beta edil taken Cardiac risk factors Elevated lipids, + family history, obesity Prior Workup/Intervention cardiolyte scan Timing/Duration this evening Severity moderate ALLERGIES Coded Allergies: Nuts (Food) (Intermediate, I-HIVES 10/17/16) azithromycin (Intermediate, NA-NAUSEA 10/17/16) codeine (Intermediate, Q-PSSIFL-BKBE/THROAT 10/17/16) Home Medications Reported Medications OMEPRAZOLE MAGNESIUM (Prilosec 20MG) 20 MG PO BID Levothyroxine Sodium (Levothyroxine) 0.05 MG NG DAILY ASPIRIN (Aspirin 325MG) 325 MG PO DAILY History Medical History General CAD? No Angina: Yes [place]: No Hypertension? Yes Hyperlipidemia? No CHF? No DVT? Yes PE? No COPD? No Asthma? No Anemia? No GERD? No Gastric ulcers? No GI Bleed? No Hernia? Yes Thyroid Problems? No Hypothyroidism? No CVA? No Seizures? No Diabetes? No Insulin Dependent: No Insulin Pump: No Home FSBS? No Renal Insuffiency? No End Stage Renal Disease? No UTI? Yes Stones? No BPH? No GB Disease: Yes Nephritic Syndrome? No Asplenia? No Hepatitis? No Sickle Cell Disease? No Arthritis? No Migraines? No Cataracts? No Glaucoma? No MRSA? No HIV? No TB? No Anxiety? No Depression? No Cancer? No More? 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 Respiratory denies cough, denies shortness of breath, denies wheezing Cardiovascular see HPI, chest pain, denies syncope Gastrointestinal denies abdominal pain, denies diarrhea, denies vomiting Genitourinary denies: dysuria, frequency, hesitancy, hematuria. Musculoskeletal denies back pain, denies joint pain, denies joint swelling, denies neck pain Skin denies rash Psychiatric/Neurological see HPI, denies headache, denies seizure, tingling Physical Exam Vital Signs Vital Signs Date Time Temp Pulse Resp B/P Pulse O2 O2 Flow FiO2 Ox Delivery Rate 10/09 0802 56 18 122/72 99 10/09 0658 56 18 124/92 99 10/09 0618 58 18 120/77 98 10/09 0510 97.8 65 18 117/80 98 - WBC >12,000 or <4,000 or 10% bands? 2 or more SIRS Criteria Met? B/P:122/72 MAP:92 Creatinine >2.0? UA output<0.5ml/kg/hr for 2 hrs? Platelet count >100,000? Lactate >2.0mmol/1? INR >1.2 or PTT > than 60 sec? Evidence of Organ Dysfunction? Provider documented clinical suspician of infection? N Sepsis Criteria Count: 0 Sepsis Risk: Low Sepsis Risk General Appearance no apparent distress Eye Exam - bilateral eye PERRL, bilateral eye EOMI Ear, Nose, Throat normal ENT inspection Neck supple Respiratory Status No: respiratory distress. Lung Sounds bilateral: lungs clear. Cardiovascular regular rate/rhythm, systolic murmur Peripheral Pulses Pulses normal Yes Gastrointestinal soft Extremities normal inspection Strength 4 Upper Ext (L), 4 Upper Ext (R), 4 Lower Ext (L), 4 Lower Ext (R) Neurologic alert, cna caregiver II-XII nml as tested, no motor/sensory deficits Reflexes Reflexes normal No Mental status normal mood/affect Skin intact Medical Decision Making LABS/Meds/Orders Pt receiving controlled substance in ED? No Results/Orders Laboratory Tests 10/09/17 0736: Troponin I < 0.02 10/09/17 0545: TSH 7.72 H, Thyroxine (T4) 6.5 10/09/17 0545: Sodium 138, Potassium 4.1, Chloride 106, Carbon Dioxide 26, BUN 16, Creatinine 1.1 H, Estimated Creat Clear 103, Estimated GFR (MDRD) 53 L, Glucose 109 H, Calcium 8.3 L, Total Bilirubin 0.3, AST 13 L, ALT 17, Alkaline Phosphatase 89, Creatine Kinase 107, CK-MB (CK-2) Rel Index 0.9, CK and CKMB Interp 1.0, Troponin I < 0.02, Total Protein 7.1, Albumin 3.4, Globulin 3.7 H, Albumin/ Globulin Ratio 0.9 L, WBC 4.5 L, RBC 3.75 L, Hgb 8.8 L, Hct 29.4 L, MCV 78.6 L, RDW 16.8, Plt Count 215, MPV 10.3, Gran % 61.5, Gran # 2.8, Lymphocytes % 29.6, Monocytes % 6.2, Eosinophils % 2.3, Basophils % 0.4, Lymphocytes # 1.3, Monocytes # 0.3, Eosinophils # 0.1, Basophils # 0.0, PUBS MCHC 30.0 L, MCH 23.6 L Current Medication Orders Sig/Stefania Start time Last Medication Dose Route Stop Time Status Admin Aspirin 324 MG ONCE ONE 10/09 530 DC 10/09 PO 10/09 Sodium Chloride 10 ML PRN PRN 10/09 530 AC IV 10/10 525 Aspirin 0 .STK-MED ONE 10/09 527 DC .ROUTE Orders Procedure Date/time Status DIET-NOTHING BY MOUTH 10/09 B Active TROPONIN I 10/[address] SCAN REQ 10/09 609 Complete THYROID STIMULATING HORMONE 10/09 529 Complete THYROXINE (T4) 10/09 529 Complete ELECTROCARDIOGRAM REQUEST 10/09 526 Active CHEST-PORTABLE 10/09 526 Active IV SALINE LOCK 10/09 526 Active SUPERVISOR DIAGNOSTIC 10/09 526 Active CBC WITH AUTO DIFF 10/09 526 Complete CARDIAC ENZYMES 10/09 526 Complete CHEM 12 PROFILE 10/09 526 Complete CM/EKG CM/or scrub tech Rhythm Sinus Bradycardia EKG non-spec. ST/Twave chgs XRAY/CT/US XRAY/CT/US 1 XRAY chest XR interpretation by reviewed by me Xray Results abnormal (cm) XRAY/CT/US [address] interpretation by discussed w/radiologist Time results known: 08 CT Results normal/NAD JUANJO Score for N-Stemi/Angina JUANJO N-STEMI SCORE JUANJO N-STEMI SCORE Response Value Age of patient Less than 65 yrs 0 Number of risk factors for CAD Presence of 3 or more 1 Prior coronary artery stenosis (seen in angiography) Less than 50% 0 ST-Segment deviation on ECG (>1 min) Absent 0 Prior aspirin intake No ASA in the last 7 days 0 Severe anginal chest pain No or 1 episode in 24h 0 Elevated cardiac markers(CK-MB or troponin) Absent 0 Total 1 Risk Stratification 0-2= Low Risk Patients Departure Departure Time of Disposition 825 Disposition DC Home or Self Care(routine) Clinical Impression Primary Impression: Chest pain Qualifiers: Chest pain type: unspecified Qualified Code: R07.9 - Chest pain, unspecified Secondary Impressions: Anemia Qualifiers: Anemia type: unspecified type Qualified Code: D64.9 - Anemia, unspecified TIA (transient ischemic attack) Qualifiers: Transient cerebral ischemia type: unspecified Qualified Code: G45.9 - Transient cerebral ischemic attack, unspecified Condition STABLE Patient Instructions DI for Chest Pain Additional Instructions will see pcp and card wednesday and return if needed Discharge Counseling Counseled pt/family regarding diagnosis, test results, medications/RX, follow up needs ED Critical Care Critical Care No at [id number]
--- NOTE | 2017-10-09 05:29 | Emergency Room Report ---
History of Present Illness Time Seen by 05Carson Presenting Problem in Triage Pt arrived:Walked Presenting Problem:PT STATES SHE HAS A PRESSURE-LIKE CHEST PAIN IN THE LEFT UPPER PART OF HER CHEST THAT RADIATES WITH A NUMBNESS DOWN HER LEFT ARM. SHE HAS FELT SLIGHTLY SIMILAR TO THIS ONCE BEFORE IN DECEMBER OF THIS YEAR AND WAS DIAGNOSED AT THAT TIME WITH A TIA. AT THAT TIME, HOWEVER, PT HAD TOTAL LEFT SIDE NUMBNESS. PT ALSO STATES SHE FEELS DIZZY AND NAUSEOUS. THIS STARTED ABOUT 2 HOURS AGO Onset of symptoms date/time:10/09/1712/25/329 or onset unknown for: Treatment Prior to Arrival: TIPPLE BOSS Provided by: Sepsis Risk Assessment: Temp: 97.8 B/P: 117/80 MAP: 92 Pulse: 65 Resp: 18 Recent fever? N Clinical Suspician of Infection? N Mental Status: 1 - Regular (Normal Baseline) Sepsis Risk:Low Sepsis Risk Have you (or family members/close friends) recently traveled outside the [place]? N If Yes, where/when: Have you had exposure to infectious disease within the past month? N TB? Other? Specify: Source patient, RN notes reviewed, family, old records Exam Limitations no limitations Comment pt with episode of chest pain which she awoke and has assoc tingling lt upper ext but no slurred speech or visual sx and has had similiar episode in [facility] in - chart reviewed from old office records- Cardiac Chest Pain Chest pain indicative of cardiac Yes Timing/Duration 1-3 hours, gone now Severity/Quality moderate, pressure Location central Chest Pain Radiation arm(s) Activities at Onset light activity Nitro Today/Relief no nitro taken today Aspirin Treatment Today 325 mg x 1, provided by ED Beta edil treatment today no beta edil taken Cardiac risk factors Elevated lipids, + family history, obesity Prior Workup/Intervention cardiolyte scan Timing/Duration this evening Severity moderate ALLERGIES Coded Allergies: Nuts (Food) (Intermediate, I-HIVES 10/17/16) azithromycin (Intermediate, NA-NAUSEA 10/17/16) codeine (Intermediate, O-FBELAF-UQQE/THROAT 10/17/16) Home Medications Reported Medications OMEPRAZOLE MAGNESIUM (Prilosec 20MG) 20 MG PO BID Levothyroxine Sodium (Levothyroxine) 0.05 MG NG DAILY ASPIRIN (Aspirin 325MG) 325 MG PO DAILY History Medical History General CAD? No Angina: Yes [place]: No Hypertension? Yes Hyperlipidemia? No CHF? No DVT? Yes PE? No COPD? No Asthma? No Anemia? No GERD? No Gastric ulcers? No GI Bleed? No Hernia? Yes Thyroid Problems? No Hypothyroidism? No CVA? No Seizures? No Diabetes? No Insulin Dependent: No Insulin Pump: No Home FSBS? No Renal Insuffiency? No End Stage Renal Disease? No UTI? Yes Stones? No BPH? No GB Disease: Yes Nephritic Syndrome? No Asplenia? No Hepatitis? No Sickle Cell Disease? No Arthritis? No Migraines? No Cataracts? No Glaucoma? No MRSA? No HIV? No TB? No Anxiety? No Depression? No Cancer? No More? 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 Respiratory denies cough, denies shortness of breath, denies wheezing Cardiovascular see HPI, chest pain, denies syncope Gastrointestinal denies abdominal pain, denies diarrhea, denies vomiting Genitourinary denies: dysuria, frequency, hesitancy, hematuria. Musculoskeletal denies back pain, denies joint pain, denies joint swelling, denies neck pain Skin denies rash Psychiatric/Neurological see HPI, denies headache, denies seizure, tingling Physical Exam Vital Signs Vital Signs Date Time Temp Pulse Resp B/P Pulse O2 O2 Flow FiO2 Ox Delivery Rate 10/09 0802 56 18 122/72 99 10/09 0658 56 18 124/92 99 10/09 0618 58 18 120/77 98 10/09 0510 97.8 65 18 117/80 98 - WBC >12,000 or <4,000 or 10% bands? 2 or more SIRS Criteria Met? B/P:122/72 MAP:92 Creatinine >2.0? UA output<0.5ml/kg/hr for 2 hrs? Platelet count >100,000? Lactate >2.0mmol/1? INR >1.2 or PTT > than 60 sec? Evidence of Organ Dysfunction? Provider documented clinical suspician of infection? N Sepsis Criteria Count: 0 Sepsis Risk: Low Sepsis Risk General Appearance no apparent distress Eye Exam - bilateral eye PERRL, bilateral eye EOMI Ear, Nose, Throat normal ENT inspection Neck supple Respiratory Status No: respiratory distress. Lung Sounds bilateral: lungs clear. Cardiovascular regular rate/rhythm, systolic murmur Peripheral Pulses Pulses normal Yes Gastrointestinal soft Extremities normal inspection Strength 4 Upper Ext (L), 4 Upper Ext (R), 4 Lower Ext (L), 4 Lower Ext (R) Neurologic alert, asp developer II-XII nml as tested, no motor/sensory deficits Reflexes Reflexes normal No Mental status normal mood/affect Skin intact Medical Decision Making LABS/Meds/Orders Pt receiving controlled substance in ED? No Results/Orders Laboratory Tests 10/09/17 0736: Troponin I < 0.02 10/09/17 0545: TSH 7.72 H, Thyroxine (T4) 6.5 10/09/17 0545: Sodium 138, Potassium 4.1, Chloride 106, Carbon Dioxide 26, BUN 16, Creatinine 1.1 H, Estimated Creat Clear 103, Estimated GFR (MDRD) 53 L, Glucose 109 H, Calcium 8.3 L, Total Bilirubin 0.3, AST 13 L, ALT 17, Alkaline Phosphatase 89, Creatine Kinase 107, CK-MB (CK-2) Rel Index 0.9, CK and CKMB Interp 1.0, Troponin I < 0.02, Total Protein 7.1, Albumin 3.4, Globulin 3.7 H, Albumin/ Globulin Ratio 0.9 L, WBC 4.5 L, RBC 3.75 L, Hgb 8.8 L, Hct 29.4 L, MCV 78.6 L, RDW 16.8, Plt Count 215, MPV 10.3, Gran % 61.5, Gran # 2.8, Lymphocytes % 29.6, Monocytes % 6.2, Eosinophils % 2.3, Basophils % 0.4, Lymphocytes # 1.3, Monocytes # 0.3, Eosinophils # 0.1, Basophils # 0.0, PUBS MCHC 30.0 L, MCH 23.6 L Current Medication Orders Sig/Stefania Start time Last Medication Dose Route Stop Time Status Admin Aspirin 324 MG ONCE ONE 10/09 530 DC 10/09 PO 10/09 Sodium Chloride 10 ML PRN PRN 10/09 530 AC IV 10/10 525 Aspirin 0 .STK-MED ONE 10/09 527 DC .ROUTE Orders Procedure Date/time Status DIET-NOTHING BY MOUTH 10/09 B Active TROPONIN I 10/[address] SCAN REQ 10/09 609 Complete THYROID STIMULATING HORMONE 10/09 529 Complete THYROXINE (T4) 10/09 529 Complete ELECTROCARDIOGRAM REQUEST 10/09 526 Active CHEST-PORTABLE 10/09 526 Active IV SALINE LOCK 10/09 526 Active BEAD FLIPPER 10/09 526 Active CBC WITH AUTO DIFF 10/09 526 Complete CARDIAC ENZYMES 10/09 526 Complete CHEM 12 PROFILE 10/09 526 Complete CM/EKG CM/library services dean Rhythm Sinus Bradycardia EKG non-spec. ST/Twave chgs XRAY/CT/US XRAY/CT/US 1 XRAY chest XR interpretation by reviewed by me Xray Results abnormal (cm) XRAY/CT/US [address] interpretation by discussed w/radiologist Time results known: 08 CT Results normal/NAD JUANJO Score for N-Stemi/Angina JUANJO N-STEMI SCORE JUANJO N-STEMI SCORE Response Value Age of patient Less than 65 yrs 0 Number of risk factors for CAD Presence of 3 or more 1 Prior coronary artery stenosis (seen in angiography) Less than 50% 0 ST-Segment deviation on ECG (>1 min) Absent 0 Prior aspirin intake No ASA in the last 7 days 0 Severe anginal chest pain No or 1 episode in 24h 0 Elevated cardiac markers(CK-MB or troponin) Absent 0 Total 1 Risk Stratification 0-2= Low Risk Patients Departure Departure Time of Disposition 825 Disposition DC Home or Self Care(routine) Clinical Impression Primary Impression: Chest pain Qualifiers: Chest pain type: unspecified Qualified Code: R07.9 - Chest pain, unspecified Secondary Impressions: Anemia Qualifiers: Anemia type: unspecified type Qualified Code: D64.9 - Anemia, unspecified TIA (transient ischemic attack) Qualifiers: Transient cerebral ischemia type: unspecified Qualified Code: G45.9 - Transient cerebral ischemic attack, unspecified Condition STABLE Patient Instructions DI for Chest Pain Additional Instructions will see pcp and card wednesday and return if needed Discharge Counseling Counseled pt/family regarding diagnosis, test results, medications/RX, follow up needs ED Critical Care Critical Care No at [phone]
[2017-10-09 06:01] LABS: HEMOGLOBIN 8.8 g/dL (12.2-16.2); LYMPH # 1.3 K/mm3 (0.7-4.5); LYMPH % 29.6 % (10-50.0)
[2017-10-09 06:47] LABS: BUN 16 mg/dL (7-18)
[2017-10-09 06:49] LABS: GFR (ESTIMATED) 53 ML/MIN (59-)
--- NOTE | 2017-10-09 07:51 | RADIOLOGY REPORT PS360 ---
CT HEAD WITHOUT CONTRAST CT BONE WINDOWS included ORDERING PHYSICIAN : Denzel Bazzi MD PATIENT AGE: 47 years GENDER: Female PROCEDURE: Routine axial images headwithout contrast. Brain & bone windows HISTORY: TINGLING IN LEFT UPPER EXTRIMITY Tingling left upper extremity began 1.5 hours ago. Previously had episode of entire left side numbness December 2016 COMPARISON: No relevant previous studies FINDINGS: No acute intracranial findings. No hemorrhage. . No mass effect or mass lesion. No subdural nor extra-axial collection. Ventricles & basal cisterns appear satisfactory. Shore & white matter patterns satisfactory. The posterior fossa appear satisfactory and unremarkable. Mucosal thickening/soft tissue density fills the smaller right sphenoid. This likely reflects old chronic inflammatory changes, less likely a retention cyst. No associated bone changes. Old fracture at the medial wall of the left orbit. It is medial displacement towards ethmoid air cells. Globes unremarkable.Mastoid air cells, middle ear & IACs are unremarkable. IMPRESSION: No acute intracranial findings. Brain within normal limits by CT Remote old fracture of the medial wall left orbit. Most likely Mucosal thickening fills the right sphenoid sinus
[2017-10-09 08:39] VITALS: BP 118/69
--- NOTE | 2017-10-10 15:05 | RADIOLOGY REPORT PS360 ---
CHEST-PORTABLE Ordering physician: Denzel Bazzi MD Age: 47 years Female INDICATION: chest symptomsCHEST PAIN PROCEDURE: CHEST-PORTABLE FINDINGS: No acute findings Lungs well expanded and clear with nothing definitely acute. No pneumothorax. No pleural effusion. Other incidental a low prominent hiatal hernia which appears to account for retrocardiac density measuring nearly 10 cm diameter. Clinical correlation required. A previous CT of the abdomen confirms large hiatal hernia here July 2016. Heart upper normal size. . Borderline Normal pulmonary vascularity. certified medical aide leads in place Hilar and mediastinal structures appear satisfactory. Chest wall unremarkable.. IMPRESSION ----- Lungs clear with nothing definitely acute . Large hilar hernia incidentally noted. Borderline cardiomegaly.
--- NOTE | 2017-10-10 15:05 | RADIOLOGY REPORT PS360 ---
CHEST-PORTABLE Ordering physician: Denzel Bazzi MD Age: 47 years Female INDICATION: chest symptomsCHEST PAIN PROCEDURE: CHEST-PORTABLE FINDINGS: No acute findings Lungs well expanded and clear with nothing definitely acute. No pneumothorax. No pleural effusion. Other incidental a low prominent hiatal hernia which appears to account for retrocardiac density measuring nearly 10 cm diameter. Clinical correlation required. A previous CT of the abdomen confirms large hiatal hernia here July 2016. Heart upper normal size. . Borderline Normal pulmonary vascularity. rn internal medicine leads in place Hilar and mediastinal structures appear satisfactory. Chest wall unremarkable.. IMPRESSION ----- Lungs clear with nothing definitely acute . Large hilar hernia incidentally noted. Borderline cardiomegaly.
== END 2017-10-09 08:40 | disposition home or self-care (01) ==
LOC: ER 05:10
PROVIDERS: Emergency Medicine
DX: G54.9 Nerve root and plexus disorder, unspecified (principal); D64.9 Anemia, unspecified; R07.9 Chest pain, unspecified

== ENCOUNTER → 2017-10-14 | Outpatient (CLI) | payer MEDICAID ==
[~2017-10-14] MED LIST changes: +ASPIRIN 325MG325 MG PO; +LEVOTHYROXINE0.05 MG NG
[2017-10-16 07:37] LABS: Iron 24 ug/dL (27-159); Iron Saturation 6 % (15-55); UIBC 411 ug/dL (131-425)
[2017-10-16 08:40] LABS: Transferrin 361 mg/dL (200-370)
== END ==
LOC: LAB 15:16
PROVIDERS: Nurse Practitioner Family
DX: R53.83 Other fatigue (principal)

== ENCOUNTER → 2017-10-22 | Outpatient (CLI) | payer MEDICAID ==
[~2017-10-22] MED LIST changes: +PROTONIX40 MG PO; +REGLAN 5MG TABLE5 MG PO
--- NOTE | 2017-10-22 13:15 | RADIOLOGY REPORT PS360 ---
CT CHEST W/ CONTRAST INDICATION: HIATAL HERNIA, ANEMIA, GI BLEED ORDERING PHYSICIAN: Tommie Cole MD PATIENT AGE: 47 years COMPARISON: 08/16/2010 TECHNIQUE: Axial images are obtained with 75 mL's Isovue-370 contrast. Sagittal and coronal reformatted images are reviewed as well. FINDINGS: The isthmus of the thyroid is prominent. No mediastinal or hilar mass or adenopathy is evident. There is a moderate sized hiatal hernia.. There is a small bleb in the right apex medially which measures 17 x 13 mm. This is slightly larger compared to the previous exam previously measuring 16 x 8 mm. No lobar consolidation or collapse or effusion. No suspicious pulmonary nodules. No acute bony anomalies. IMPRESSION: 1. No acute thoracic findings. 2. Slight increase in size of right apical bleb. 3. Mild prominence of the isthmus of the thyroid gland. 4. Moderate-sized hiatal hernia
--- NOTE | 2017-10-22 13:18 | RADIOLOGY REPORT PS360 ---
CT ABD W/ CONTRAST CLINICAL INDICATION: HIATAL HERNIA, ANEMIA, GI BLEED ORDERING PHYSICIAN: Tommie Cole MD PATIENT AGE: 47 years TECHNIQUE: Axial images are obtained following the intravenous administration of 75 mL's of Isovue-370. Oral contrast also utilized. COMPARISON: 07/28/2016 FINDINGS: There is a moderate sized hiatal hernia. 5 mm isodense is present in the right hepatic lobe not significantly changed. There has been a prior cholecystectomy. The spleen, left adrenal gland, pancreas, and kidneys have an unremarkable appearance. The right adrenal gland is slightly enlarged at 17 mm likely related to an adenoma not significant changed. No intestinal obstruction or free air. There is a tiny umbilical hernia containing fat. IMPRESSION: 1. Moderate-sized hiatal hernia. 2. Stable isodensity of the right hepatic lobe probably benign. 3. Probable right adrenal adenoma unchanged 4. No acute finding
== END ==
LOC: RAD 09:13
DX: R94.31 Abnormal electrocardiogram [ECG] [EKG] (principal); D64.9 Anemia, unspecified; K44.9 Diaphragmatic hernia without obstruction or gangrene; K92.2 Gastrointestinal hemorrhage, unspecified; Z86.73 Personal history of transient ischemic attack (TIA), and cerebral infarction without residual deficits
CPT/HCPCS: Q9967